=== PATIENT | male | born 1940 | race Hispanic/Latino ===

== ENCOUNTER 2021-04-19 07:50 | Day surgery (SDC) | payer MEDICARE ==
[2021-04-14 15:01] LABS: BASOPHILS % (AUTO) 0.3 % (0.0-5.0); EOSINOPHILS % (AUTO) 0.1 % (0.0-8.0); HEMATOCRIT 38.9 % (42-54); LYMPHOCYTES % (AUTO) 11.1 % (21.0-51.0); MEAN CORPUSCULAR HGB CONC 34.7 g/dL (32.0-36.0); MEAN CORPUSCULAR VOLUME 89.2 fL (79-99); MONOCYTES % (AUTO) 5.7 % (3.0-13.0); NEUTROPHILS % (AUTO) 82.4 % (40.0-77.0); PLATELET COUNT (AUTO) 184 K/uL (130-400); RED BLOOD CELL COUNT(AUTO) 4.36 MIL/uL (4.50-6.20); RED CELL DISTRIBUTION WIDTH 12.1 % (11.0-15.5); WHITE BLOOD COUNT (AUTO) 9.3 K/uL (4.8-10.8)
[2021-04-14 15:16] LABS: CREATININE 1.6 mg/dL (0.5-1.5); POTASSIUM 4.7 mmol/L (3.5-5.1)
[2021-04-14 15:20] LABS: APPEARANCE,URINE Clear (CLEAR); BILIRUBIN,URINE Negative (NEGATIVE); COLOR,URINE Yellow (YELLOW); GLUCOSE, URINE (UA) Negative (NEGATIVE); KETONES,URINE Negative (NEGATIVE); LEUKOCYTE ESTERASE ,URINE Trace (NEGATIVE); NITRATE,URINE Negative (NEGATIVE); OCCULT BLOOD,URINE Negative (NEGATIVE); PH,URINE 6.5 (5.0-8.0); PROTEIN,URINE Negative (NEGATIVE)
[2021-04-14 15:23] LABS: INR 1.19 (0.85-1.15); PROTHROMBIN TIME 12.8 SEC (9.6-11.6)
[2021-04-14 15:24] LABS: PARTIAL THROMBOPLASTIN TIME 25.7 SEC (26.3-35.5)
[2021-04-14 15:35] LABS: RBC,URINE 0-1 /HPF (0-1)
[2021-04-14 15:36] LABS: BACTERIA,URINE Few /HPF (None Seen); MUCUS,URINE Rare LPF (None Seen); SQUAMOUS EPITHELIAL CELL,UR Few /HPF (0-2)
[2021-04-18 15:43] VITALS: BP 152/66
[2021-04-19] VITALS (10 sets, daily range): BP systolic 124–140; BP diastolic 55–74
[~2021-04-19] VITALS: Ht 165.1 cm; Wt 80.3 kg
[~2021-04-19 07:50] MED LIST: 0.9% NACL 500ML IV.SOLN 500 ML IV SCH; ALEN35TA53 PO; AMLO-258 PO; ASPI-1026 PO; ATOR40TA71 PO; CELE-84 PO; FERS325 PO; HYDR25TA PO; LOSA100T58 PO; METO-391 PO; PRED5TAB PO
[2021-04-19] MEDS ORDERED: 0.9%NACL 1000ML 1,000 ML IV ONE (08:14)
[2021-04-19] MEDS ORDERED: SODIUM BICARB 50MEQ 50ML VIAL 50 ML ONE (09:28)
[2021-04-19] MEDS ORDERED: IOHEXOL-350 50ML VIAL IV ONE ×2 (09:28→09:55)
[2021-04-19] MEDS ORDERED: IOHEXOL 350 MG/ML 100ML INFUS..BTL IV ONE (09:28)
[2021-04-19] MEDS ORDERED: HEPARIN 10,000 UNIT/10ML (1,000 UNIT/ML) VIAL ONE (09:28)
[2021-04-19] MEDS ORDERED: MIDAZOLAM HCL 1 MG/ML 2ML VIAL ONE (09:29)
[2021-04-19] MEDS ORDERED: LIDOCAINE HCL 400MG/20ML VIAL ONE (09:29)
[2021-04-19] MEDS ORDERED: FENTANYL CITRATE PF 50 MCG/1 ML 2ML VIAL ONE (09:29)
[2021-04-19] MEDS ORDERED: NITROGLYCERIN 50MG VIAL IV ONE (09:29)
[2021-04-19] MEDS ORDERED: 0.9%NACL 1000ML 1,000 ML IV SCH (10:30)
== END 2021-04-19 14:25 | disposition home or self-care (01) ==
LOC: DAH 07:50
PROVIDERS: ATTEND Internal Medicine Cardiovascular Disease
DX: I25.10 Atherosclerotic heart disease of native coronary artery without angina pectoris (principal); R94.31 Abnormal electrocardiogram [ECG] [EKG]; I11.0 Hypertensive heart disease with heart failure; I50.42 Chronic combined systolic (congestive) and diastolic (congestive) heart failure; I44.0 Atrioventricular block, first degree; I25.2 Old myocardial infarction; M19.90 Unspecified osteoarthritis, unspecified site; Z98.890 Other specified postprocedural states; Z79.01 Long term (current) use of anticoagulants; Z79.899 Other long term (current) drug therapy
CPT/HCPCS: 36415; 71045; 80048; 81001; 85025; 85610; 85730; 93005; 93458; A4215; A4216; A4221; A4222; A4223 ×2; A4606; A4663; C1760; C1894 ×2; J1644; J2250; J3010; J3490 ×3; J7030; Q9965; Q9967; 96360; 96361; 99156; 99157

== ENCOUNTER 2023-04-26 07:31 | Emergency (ER) | payer MEDICARE ==
[~2023-04-26] VITALS: Ht 165.1 cm; Wt 79.4 kg
[~2023-04-26 07:31] MED LIST changes: -0.9% NACL 500ML IV.SOLN 500 ML IV SCH; +CELE-125 PO; -CELE-84 PO; -LOSA100T58 PO; +LOSA100T59 PO
[2023-04-26] MEDS ORDERED: KETOROLAC 60 MG VIAL (30MG/ML) IM ONE (08:30)
[2023-04-26] MEDS ORDERED: CYCL10TA16 PO (10:01)
[2023-04-26] MEDS ORDERED: ALEN10TA26 PO (10:01)
[2023-04-26] MEDS ORDERED: MELO-106 PO (10:01)
[2023-04-26] MEDS ORDERED: CALC-1277 PO (10:01)
[2023-04-26] MEDS ORDERED: MV-M1TAB20 PO (10:01)
[2023-04-26 10:10] VITALS: BP 132/78; PULSE 78; RESP 18; O2SAT 98
== END 2023-04-26 10:19 | disposition home or self-care (01) ==
LOC: EDH 07:31
DX: M54.50 Low back pain, unspecified (principal); M48.54XA Collapsed vertebra, not elsewhere classified, thoracic region, initial encounter for fracture; I10 Essential (primary) hypertension; M19.90 Unspecified osteoarthritis, unspecified site; Z79.1 Long term (current) use of non-steroidal anti-inflammatories (NSAID); Z79.52 Long term (current) use of systemic steroids; Z79.82 Long term (current) use of aspirin; Z79.899 Other long term (current) drug therapy; Z95.810 Presence of automatic (implantable) cardiac defibrillator
CPT/HCPCS: 99283; 72100; 96372; J1885

== ENCOUNTER → 2023-07-09 | Outpatient (CLI) | payer MEDICARE, OTHER ==
[~2023-07-09] MED LIST changes: +ALEN10TA26 PO; +CALC-1277 PO; +CYCL10TA16 PO; +MELO-106 PO; +MV-M1TAB20 PO
[2023-07-09 12:37] LABS: ALBUMIN 3.8 g/dL (3.5-5.0); BILIRUBIN,TOTAL 0.9 mg/dL (0.2-1.0); CREATININE 1.3 mg/dL (0.5-1.3); TOTAL PROTEIN, SERUM 7.2 g/dL (6.0-8.3)
== END | disposition home or self-care (01) ==
LOC: LAB 10:47
PROVIDERS: ATTEND Internal Medicine Cardiovascular Disease
DX: I25.10 Atherosclerotic heart disease of native coronary artery without angina pectoris (principal); E78.5 Hyperlipidemia, unspecified; I10 Essential (primary) hypertension
CPT/HCPCS: 36415; 80053; 80061

== ENCOUNTER 2024-05-01 09:55 | Day surgery (SDC) | payer OTHER ==
[2024-04-29 10:38] LABS: BASOPHILS # (AUTO) 0.02 K/uL (0.00-0.20); BASOPHILS % (AUTO) 0.3 % (0.0-5.0); EOSINOPHILS # (AUTO) 0.22 K/uL (0.00-0.70); EOSINOPHILS % (AUTO) 2.8 % (0.0-8.0); HEMATOCRIT 43.9 % (42-54); IMMATURE GRANULOCYTE ABSOLUTE 0.05 K/uL (0-1); LYMPHOCYTES # (AUTO) 2.4 K/uL (1.0-4.8); LYMPHOCYTES % (AUTO) 30.2 % (21.0-51.0); MEAN CORPUSCULAR HEMOGLOBIN 31.2 pg (27.0-33.0); MEAN CORPUSCULAR HGB CONC 33.3 g/dL (32.0-36.0); MEAN CORPUSCULAR VOLUME 93.8 fL (79-99); MONOCYTES # (AUTO) 0.8 K/uL (0.1-1.0); MONOCYTES % (AUTO) 9.4 % (3.0-13.0); NEUTROPHILS # (AUTO) 4.5 K/uL (1.8-7.7); NEUTROPHILS % (AUTO) 56.7 % (40.0-77.0); PLATELET COUNT (AUTO) 225 K/uL (130-400); RED BLOOD CELL COUNT(AUTO) 4.68 MIL/uL (4.50-6.20)
[2024-04-29 10:50] LABS: CREATININE 1.7 mg/dL (0.5-1.3); POTASSIUM 4.4 mmol/L (3.5-5.1)
[2024-04-29 10:51] LABS: INR 0.98 (0.85-1.15)
[2024-04-29 10:52] LABS: PARTIAL THROMBOPLASTIN TIME 24.7 SEC (26.3-35.5)
[2024-04-29 11:09] VITALS: BP 156/70; PULSE 78; RESP 14; TEMP 98.2
--- NOTE | 2024-04-29 11:38 | EKG ---
[facility] Test Date: 2024-04-29 Test Time: 11:20:04 Pat Name: LALITA EPSTEIN Department: [facility] Room: Gender: M Bill Checker: [id number] : 1940 Requested By: OLENA CLEMENT Order Number: [id number] Reading MD: Dayo Garcia Measurements Intervals Adams Rate: 73 P: 0 MI: 168 QRS: -18 QRSD: 177 T: 158 QT: 452 QTc: 498 Interpretive Statements Atrial-sensed ventricular-paced rhythm Compared to ECG 04/14/2021 15:38:32 Sinus rhythm no longer present First degree AV block no longer present Myocardial infarct finding no longer present Electronically Signed On 04-29-2024 17:09:10 INTERNATIONAL ACCOUNTANT by Dayo Garcia Please click the below link to view image of tracing.
--- NOTE | 2024-04-30 09:35 | NUR ---
REPORT REPORTED BUN AND CREAT TO PETER MARTÍNEZ. RECEIVED ORDERS TO REPEAT BMP IN AM
[~2024-05-01] VITALS: Ht 165.1 cm; Wt 79.5 kg
[~2024-05-01 09:55] MED LIST changes: -ALEN10TA26 PO; +AMLO-257 PO; -AMLO-258 PO; -ATOR40TA71 PO; -CALC-1277 PO; -CYCL10TA16 PO; -MELO-106 PO; -MV-M1TAB20 PO
[2024-05-01] MEDS ORDERED: 0.9%NACL 1000ML 1,000 ML IV SCH (10:00)
[2024-05-01 10:05] VITALS: BP 143/66; PULSE 74; RESP 18; TEMP 97.4
[2024-05-01 10:29] LABS: CREATININE 1.3 mg/dL (0.5-1.3); POTASSIUM 4.6 mmol/L (3.5-5.1)
[2024-05-01] MEDS: 0.9%NACL 1000ML 1,000 ML IV ONE (10:37)
[2024-05-01] MEDS ORDERED: BUPIvacaine/PF 0.25% 30ML VIAL IJ ONE (10:46)
[2024-05-01] MEDS ORDERED: LIDOCAINE HCL 1% MDV 50ML VIAL ONE (10:46)
[2024-05-01] MEDS ORDERED: ceFAZolin SODIUM 1 GM VIAL ONE (10:48)
[2024-05-01] MEDS ORDERED: IOHEXOL-350 75 ML VIAL IV ONE (11:03)
--- NOTE | 2024-05-01 11:16 | NUR ---
LABS BUN AND CREATININE REPORTED RESULTS TO CHRIS RN. WILL NOTIFY DR. CLEMENT.
[2024-05-01] MEDS ORDERED: MEPERIDINE-PF 25 MG/ML SYG ONE ×2 (12:41→12:56)
[2024-05-01] MEDS ORDERED: MIDAZOLAM HCL 1 MG/ML 2ML VIAL ONE ×2 (12:42→12:56)
[2024-05-01] MEDS ORDERED: BACITRACIN 1 EACH PACKET TP ONE (13:24)
[2024-05-01] MEDS ORDERED: TRAM50TA4 PO (13:42)
[2024-05-01] MEDS ORDERED: acetaMINOPHEN WITH coDEINE 1 TAB TAB PO PRN (14:00)
[2024-05-01] MEDS ORDERED: acetaMINOPHEN 500 MG TABLET PO PRN (14:00)
[2024-05-01 14:01] VITALS: BP 115/63; PULSE 107; RESP 13; TEMP 97.1
--- NOTE | 2024-05-01 14:01 | NUR ---
DRESSING PRESSURE DRESSING TO LEFT UPPER CHEST INTACT NO ACTIVE BLEEDING NOTED.
[2024-05-01 14:16] VITALS: BP 102/60; PULSE 78; RESP 14
--- NOTE | 2024-05-01 14:16 | NUR ---
DRESSING PRESSURE DRESSING TO LEFT UPPER CHEST REMAINS DRY AND INTACT.
[2024-05-01 14:30] VITALS: BP 114/56; PULSE 75; RESP 16
--- NOTE | 2024-05-01 14:33 | NUR ---
REPORT REPORT GIVEN TO TASIA HENDERSON AT [facility].
--- NOTE | 2024-05-01 15:30 | NUR ---
pressure dressing removed no active bleed to left chest dressing dry intact
[2024-05-01 15:35] VITALS: BP 113/58; PULSE 75; RESP 16; TEMP 97.6
--- NOTE | 2024-05-08 14:29 | HMCSR ---
APPROVED REPORT EXAM: Limited two-dimensional echocardiogram INDICATION ICD: Assess left ventricular function. 2D Dimensions RVDd4.2 cmLVEF(%)52.9 (>50%)LVED Vol(simp.)69.1 mL IVSd1.4 (0.7-1.1cm)FS(%)27 %LVES Vol(simp.)33.4 mL LVDd4.8 (3.8-5.6cm)LVEF(%, simp.)52 % PWd1.4 (0.7-1.1cm) IVSs1.8 cm LVDs3.5 (2.5-4.0cm) PWs1.6 cm Left Ventricle Left ventricular cavity size is normal. Moderate concentric left ventricular hypertrophy. Left ventri apple systolic function is low normal. The Ejection Fraction is 50-55%. Right Ventricle The right ventricle is normal size. The right ventricular systolic function is normal. Atria The left atrium is moderately to severely dilated. The right atrium size is normal. Mitral Valve Mitral valve leaflets open well. Mild posterior annular calcification noted. Tricuspid Valve The tricuspid valve leaflets appear to open well. Great Vessels The aortic root is normal in size. Pericardium No pericardial effusion. Prominent anterior epicardial fat pad is present. Other Information Quality : Technically difficult study due to body habitus Conclusion Limited study to assess LV function Moderate concentric left ventricular hypertrophy. Left ventricle systolic function is low normal. The Ejection Fraction is 50-55%. The left atrium is moderately to severely dilated.
== END 2024-05-01 15:46 | disposition home or self-care (01) ==
LOC: DAH 09:55
PROVIDERS: ATTEND Internal Medicine Cardiovascular Disease
DX: Z45.010 Encounter for checking and testing of cardiac pacemaker pulse generator [battery] (principal); I44.2 Atrioventricular block, complete; I44.30 Unspecified atrioventricular block; I44.0 Atrioventricular block, first degree; I25.2 Old myocardial infarction; I10 Essential (primary) hypertension; E78.00 Pure hypercholesterolemia, unspecified; M19.90 Unspecified osteoarthritis, unspecified site; I25.10 Atherosclerotic heart disease of native coronary artery without angina pectoris; Z79.82 Long term (current) use of aspirin; Z79.01 Long term (current) use of anticoagulants; Z79.899 Other long term (current) drug therapy
CPT/HCPCS: 80048 ×2; 85025; 85610; 85730; 82306; 36415 ×2; 93005; 33228; 93308; C1785; J0690; J7030; J0665; J2250 ×2; J2175 ×2; J3490; A4215; A6251; A4222; A4221; A4663; A4216; A6258; A4606; A4223 ×3; 99156; 99157; Q9967